=== PATIENT | female | born 1965 | race African-American/Black ===

== ENCOUNTER 2016-12-24 00:20 | Emergency (ER) | payer OTHER ==
[~2016-12-24] VITALS: Ht 160 cm; Wt 97.7 kg
[~2016-12-24 00:20] MED LIST: AMLODIPINE/BENA1 CAP; ASPIRIN325 M2 PO; IBU800 M1 PO; LEXAPRO10 MG PO; METOPROLOL TART50 M1 PO; NORVASC5 MG PO; VASOTEC10 MG PO; XANAX0.5 M1 PO
[2016-12-24 00:26] VITALS: BP 148/81
--- NOTE | 2016-12-24 00:35 | NUR ---
PT TAKEN TO BED 8
--- NOTE | 2016-12-24 00:53 | NUR ---
PATIENT PRESENTS TO ED WITH FLU-LIKE SYMPTOMS AND POSSIBLE UTI . PT STATES SHE HAS BEEN EXPERIENCING BURNING ON URINATION, SORE THROAT, BODYACHES, RUNNY NOSE, FEVER, CLAMMY SKIN AND N/V/D X4DAYS . SKIN IS PINK/WARM/DRY; AAOX4 WITH EVEN AND STEADY GAIT; LUNGS CLEAR BL; HR EVEN AND REGULAR; PT DENIES ANY CP, SOB, OR COUGH AT THIS TIME; PATIENT STATES PAIN OF 4/10 AT THIS TIME; VSS; PATIENT POSITIONED FOR COMFORT; HOB ELEVATED; BEDRAILS UP X2; BED DOWN. ER MD MADE AWARE OF PT STATUS.
[2016-12-24 02:07] VITALS: BP 148/81
--- NOTE | 2016-12-24 02:08 | NUR ---
Patient discharged with v/s stable. Written and verbal after care instructions given and explained. Patient alert, oriented and verbalized understanding of instructions. Ambulatory with steady gait. All questions addressed prior to discharge. ID band removed. Patient advised to follow up with PMD. Rx of TAMIFLU, BACTRIM DS 800MG-160MG PO BID, ZOFRAN, AND MOTRIN given. Patient educated on indication of medication including possible reaction and side effects. Opportunity to ask questions provided and answered.
== END 2016-12-24 02:08 | disposition home or self-care (01) ==
LOC: MED 00:20
DX: J11.1 Influenza due to unidentified influenza virus with other respiratory manifestations (principal); N39.0 Urinary tract infection, site not specified; R11.2 Nausea with vomiting, unspecified; M79.1 Myalgia; R19.7 Diarrhea, unspecified; I10 Essential (primary) hypertension; E03.9 Hypothyroidism, unspecified; E05.00 Thyrotoxicosis with diffuse goiter without thyrotoxic crisis or storm; Z88.1 Allergy status to other antibiotic agents

== ENCOUNTER 2017-09-14 16:04 | Emergency (ER) | payer OTHER ==
[~2017-09-14] VITALS: Ht 160 cm; Wt 94.9 kg
[~2017-09-14 16:04] MED LIST changes: +ALPR0.5T2 PO; -AMLODIPINE/BENA1 CAP; -ASPIRIN325 M2 PO; +ESCI10TA PO; -IBU800 M1 PO; +IBUP-2217 PO; -LEXAPRO10 MG PO; +METO50TA9 PO; -METOPROLOL TART50 M1 PO; -NORVASC5 MG PO; -VASOTEC10 MG PO; -XANAX0.5 M1 PO; +[UNRECOGNIZED DRUG - CODE]
[2017-09-14 16:44] VITALS: BP 143/92
--- NOTE | 2017-09-14 17:03 | NUR ---
Patient being evaluated by DR NAJERA at bedside.
[2017-09-14] MEDS ORDERED: CYCLOBENZAPRINE 10 MG TAB PO ONE (17:05)
[2017-09-14] MEDS ORDERED: HYDROcodone/APAP 5/325 MG 1 TAB TAB PO ONE (17:05)
[2017-09-14 17:25] LABS: APPEARANCE,URINE CLEAR (CLEAR); BILIRUBIN,URINE NEGATIVE (NEGATIVE); BLOOD, URINE NEGATIVE (NEGATIVE); COLOR,URINE YELLOW (YELLOW); LEUKOCYTE ESTERASE ,URINE NEGATIVE (NEGATIVE); NITRITE, URINE NEGATIVE (NEGATIVE); UGLUCOSE NEGATIVE (NEGATIVE)
[2017-09-14] MEDS ORDERED: ONDANSETRON 4 MG ODT PO ONE (18:40)
[2017-09-14 19:03] VITALS: BP 140/89
--- NOTE | 2017-09-14 19:03 | NUR ---
Patient discharged with v/s stable. Written and verbal after care instructions given and explained. Patient alert, oriented and verbalized understanding of instructions. Ambulatory with steady gait. All questions addressed prior to discharge. ID band removed. Patient advised to follow up with PMD. Rx of FLEXERIL, ZOFRAN, NAPROXEN given. Patient educated on indication of medication including possible reaction and side effects. Opportunity to ask questions provided and answered.
== END 2017-09-14 19:03 | disposition home or self-care (01) ==
LOC: MED 16:04
DX: S39.012A Strain of muscle, fascia and tendon of lower back, initial encounter (principal); Z88.1 Allergy status to other antibiotic agents; I10 Essential (primary) hypertension; Z90.710 Acquired absence of both cervix and uterus; X58.XXXA Exposure to other specified factors, initial encounter; Y93.89 Activity, other specified; Y92.89 Other specified places as the place of occurrence of the external cause; Y99.8 Other external cause status
CPT/HCPCS: 74176; 81003; 99285; S0119

== ENCOUNTER 2024-08-04 09:47 | Emergency (ER) | payer OTHER ==
[~2024-08-04] VITALS: Ht 160 cm; Wt 104.3 kg
[~2024-08-04 09:47] MED LIST changes: +METO50TA21 PO; -METO50TA9 PO; +[UNRECOGNIZED DRUG - CODE]; -[UNRECOGNIZED DRUG - CODE]
[2024-08-04 09:49] VITALS: BP 168/115; PULSE 94; RESP 20; TEMP 97.1; O2SAT 97
[2024-08-04 10:00] VITALS: O2SAT 97
[2024-08-04 10:34] LABS: BILIRUBIN,URINE NEGATIVE (NEGATIVE); BLOOD, URINE NEGATIVE (NEGATIVE); COLOR,URINE YELLOW (YELLOW); LEUKOCYTE ESTERASE ,URINE NEGATIVE (NEGATIVE); NITRITE, URINE NEGATIVE (NEGATIVE); PROTEIN,URINE TRACE (NEGATIVE); UGLUCOSE NEGATIVE (NEGATIVE); UROBILINOGEN,URINE 0.2 EU/dL (0.2 - 1)
[2024-08-04 10:34] LABS: BASOPHILS # (AUTO) 0.1 K/uL (0.00-0.22); BASOPHILS % (AUTO) 0.4 % (0.0-2.0); EOSINOPHILS % (AUTO) 0.2 % (0.0-4.0); HEMATOCRIT 43.2 % (36-48); HEMOGLOBIN 14.4 g/dL (12.0-16.0); LYMPHOCYTES # (AUTO) 2.1 K/uL (2.5-16.5); LYMPHOCYTES % (AUTO) 17.4 % (20.5-51.1); MEAN CORPUSCULAR HEMOGLOBIN 31 pg (27-31); MEAN CORPUSCULAR HGB CONC 33 g/dL (33-37); MEAN CORPUSCULAR VOLUME 92.8 fL (80-94); MONOCYTES # (AUTO) 0.5 K/uL (0.8-1.0); MONOCYTES % (AUTO) 3.8 % (1.7-9.3); NEUTROPHILS # (AUTO) 9.4 K/uL (1.8-7.7); NEUTROPHILS % (AUTO) 78.2 % (42.2-75.2); PLATELET COUNT (AUTO) 365 K/uL (140-450); RED BLOOD CELL COUNT(AUTO) 4.66 MIL/uL (4.20-5.40); RED CELL DISTRIBUTION WIDTH 14.5 % (11.6-13.7); WHITE BLOOD COUNT (AUTO) 12.1 K/uL (4.8-10.8)
[2024-08-04 10:45] LABS: CALCIUM 9.9 mg/dL (8.5-10.1); CARBON DIOXIDE 27.6 mmol/L (21-32); CREATININE 1.4 mg/dL (0.6-1.3); POTASSIUM 3.6 mmol/L (3.5-5.1)
[2024-08-04 10:54] LABS: APPEARANCE,URINE SLIGHTLY HAZY (CLEAR)
[2024-08-04 10:57] LABS: BACTERIA,URINE 2+ /HPF (None Seen); MUCUS,URINE 3+ /LPF (None Seen); RBC,URINE 0-5 /HPF (0-5); SQUAMOUS EPITHELIAL CELL,UR 4-10 (MOD) /LPF (0-3 (FEW)); WBC,URINE 0-5 /HPF (0-5)
[2024-08-04] MEDS ORDERED: ATA25 PO (11:17)
== END 2024-08-04 11:35 | disposition home or self-care (01) ==
LOC: MED 09:47
DX: R00.2 Palpitations (principal); R10.13 Epigastric pain; E07.89 Other specified disorders of thyroid; F41.9 Anxiety disorder, unspecified; R06.02 Shortness of breath; I10 Essential (primary) hypertension; E03.9 Hypothyroidism, unspecified; Z90.710 Acquired absence of both cervix and uterus; Z98.890 Other specified postprocedural states; Z79.899 Other long term (current) drug therapy; Z88.1 Allergy status to other antibiotic agents
CPT/HCPCS: 36415; 80048; 81001; 84443; 85025; 87086; 93005; 99284